=== PATIENT | female | born 1960 | race Two or more races ===

== ENCOUNTER 2019-12-07 08:37 | Emergency (ER) | payer OTHER ==
[~2019-12-07] VITALS: Ht 154.9 cm; Wt 59.0 kg
[2019-12-07] MEDS ORDERED: KETOROLAC 30 MG/1 ML ONE (09:17)
[2019-12-07 09:36] LABS: RAPID INFLUENZA A Negative (Negative); RAPID INFLUENZA B Negative (Negative)
--- NOTE | 2019-12-07 09:37 | NUR ---
Pt noted to have strong, dry, nonproductive cough. Family member reports pt travelled to [place] last month, family reports "everyone" has cough, pt c/o cough > 2 weeks w/ body aches. Reviewed POC w/ pt and family member including pending tests and chart review. Pt medicated as ordered. Provided w/ warm blanket. Call light in reach.
[2019-12-07] MEDS ORDERED: KETOROLAC 30 MG/1 ML IM ONE (10:00)
[2019-12-07 10:07] VITALS: BP 100/57
== END 2019-12-07 10:16 | disposition home or self-care (01) ==
LOC: ED 10:00
DX: B34.9 Viral infection, unspecified (principal); R51 Headache; R05 Cough; M79.10 Myalgia, unspecified site
CPT/HCPCS: 71046; 87400; 96372; 99284; J1885